=== PATIENT | female | born 1990 | race Caucasian/White ===

== ENCOUNTER 2017-03-07 18:15 | Emergency (ER) | payer OTHER ==
[~2017-03-07] VITALS: Ht 167.6 cm; Wt 68.0 kg
[2017-03-07 18:15] VITALS: BP 129/89
[2017-03-07 18:43] LABS: URINE BILIRUBIN NEGATIVE (Negative); URINE BLOOD TRACE (Negative); URINE COLOR YELLOW; URINE GLUCOSE-RANDOM* NEGATIVE (Negative); URINE KETONES TRACE (Negative); URINE NITRITE NEGATIVE (Negative); URINE PROTEIN (DIPSTICK) TRACE (Negative); URINE SPECIFIC GRAVITY >= 1.030 (1.003-1.035)
[2017-03-07] MEDS ORDERED: PENICILLIN V P500 MG PO (19:01)
== END 2017-03-07 19:39 | disposition home or self-care (01) ==
LOC: ER 18:15
PROVIDERS: Physician Assistant
DX: O26.891 Other specified pregnancy related conditions, first trimester (principal); K08.89 Other specified disorders of teeth and supporting structures; M54.5 Low back pain; Z90.49 Acquired absence of other specified parts of digestive tract; Z88.6 Allergy status to analgesic agent; Z88.5 Allergy status to narcotic agent; Z88.2 Allergy status to sulfonamides

== ENCOUNTER 2017-03-15 13:31 | Emergency (ER) | payer OTHER ==
[~2017-03-15] VITALS: Ht 167.6 cm; Wt 77.1 kg
[~2017-03-15 13:31] MED LIST: PENICILLIN V P500 MG PO
[2017-03-15] MEDS ORDERED: ASPIR 8181 MG PO (13:49)
[2017-03-15] MEDS ORDERED: IRON325 PO (13:49)
[2017-03-15 13:59] LABS: URINE BILIRUBIN NEGATIVE (Negative); URINE BLOOD TRACE (Negative); URINE COLOR YELLOW; URINE GLUCOSE-RANDOM* NEGATIVE (Negative); URINE KETONES NEGATIVE (Negative); URINE NITRITE NEGATIVE (Negative); URINE PROTEIN (DIPSTICK) TRACE (Negative); URINE SPECIFIC GRAVITY 1.025 (1.003-1.035)
[2017-03-15 14:09] LABS: ABSOLUTE NEUTROPHILS 5.9 thou/uL (1.4-8.2); BASOPHILS 0.6 % (0.0-2.0); EOSINOPHILS 0.8 % (0.0-3.0); HEMATOCRIT 37.4 % (37.0-47.0); HEMOGLOBIN 12.6 gm/dL (12.0-15.0); LYMPHOCYTES 18.4 % (24.0-44.0); MCH 27.3 pg (26.0-34.0); MCHC 33.8 g/dL (28.0-37.0); MCV 80.9 fL (80.0-100.0); MONOCYTES 9.4 % (1.0-8.0); PLATELET COUNT 267 thou/uL (150-400); POLYS 70.8 % (36.0-66.0); RBC 4.62 mil/uL (4.20-5.00); RDW 15.4 % (10.5-14.5); WBC 8.3 thou/uL (4.0-11.0)
[2017-03-15 14:13] LABS: MANUAL DIFF NO
[2017-03-15 16:44] VITALS: BP 122/65
== END 2017-03-15 16:45 | disposition home or self-care (01) ==
LOC: ER 13:31
PROVIDERS: Nurse Practitioner
DX: O98.811 Other maternal infectious and parasitic diseases complicating pregnancy, first trimester (principal); R10.2 Pelvic and perineal pain; Z3A.01 Less than 8 weeks gestation of pregnancy; Z98.890 Other specified postprocedural states; Z90.49 Acquired absence of other specified parts of digestive tract; Z88.6 Allergy status to analgesic agent; Z88.5 Allergy status to narcotic agent; Z88.2 Allergy status to sulfonamides

== ENCOUNTER 2018-01-21 16:26 | Emergency (ER) | payer OTHER ==
[~2018-01-21] VITALS: Ht 167.6 cm; Wt 68.0 kg
[~2018-01-21 16:26] MED LIST changes: +ASPIR 8181 MG PO; +IRON325 PO
[2018-01-21] MEDS ORDERED: TRAMADOL 50 MG50 MG PO (16:39)
[2018-01-21] MEDS ORDERED: AMOXICILLIN 50500 MG PO (16:39)
[2018-01-21 16:49] VITALS: BP 160/93
== END 2018-01-21 16:55 | disposition home or self-care (01) ==
LOC: ER 16:26
DX: K08.89 Other specified disorders of teeth and supporting structures (principal); Z90.49 Acquired absence of other specified parts of digestive tract; Z88.6 Allergy status to analgesic agent; Z88.5 Allergy status to narcotic agent; Z88.2 Allergy status to sulfonamides

== ENCOUNTER 2018-07-17 18:08 | Emergency (ER) | payer OTHER ==
[~2018-07-17] VITALS: Ht 165.1 cm; Wt 88.5 kg
[~2018-07-17 18:08] MED LIST changes: +AMOXICILLIN 50500 MG PO; +NAPROSYN500 MG PO; +NORFLEX100 MG PO; +TRAMADOL 50 MG50 MG PO
[2018-07-17] MEDS ORDERED: TRAMADOL 50 MG50 MG PO (20:03)
[2018-07-17] MEDS ORDERED: KEFLEX500 M1 PO (20:03)
[2018-07-17 20:31] VITALS: BP 141/82
== END 2018-07-17 20:34 | disposition home or self-care (01) ==
LOC: ER 18:08
DX: S61.210A Laceration without foreign body of right index finger without damage to nail, initial encounter (principal); Z90.49 Acquired absence of other specified parts of digestive tract; Z88.1 Allergy status to other antibiotic agents; Z88.2 Allergy status to sulfonamides; Z88.5 Allergy status to narcotic agent; W45.8XXA Other foreign body or object entering through skin, initial encounter; Y93.89 Activity, other specified; Y92.89 Other specified places as the place of occurrence of the external cause; Y99.8 Other external cause status

== ENCOUNTER 2019-02-18 11:09 | Emergency (ER) | payer OTHER ==
[~2019-02-18] VITALS: Ht 167.6 cm; Wt 86.2 kg
[~2019-02-18 11:09] MED LIST changes: +KEFLEX500 M1 PO
[2019-02-18 11:47] LABS: URINE BLOOD 3+ (Negative); URINE CLARITY CLOUDY; URINE COLOR YELLOW; URINE GLUCOSE-RANDOM* NEGATIVE (Negative); URINE KETONES NEGATIVE (Negative); URINE LEUKOCYTES-REFLEX NEGATIVE (Negative); URINE NITRITE-REFLEX NEGATIVE (Negative); URINE PROTEIN (DIPSTICK) 1+ (Negative); URINE SPECIFIC GRAVITY >= 1.030 (1.005-1.035)
[2019-02-18 11:50] LABS: ICTOTEST (BILI CONFIRMATORY) Negative (Negative); URINE BILIRUBIN NEGATIVE (Negative)
[2019-02-18 12:06] LABS: ABSOLUTE NEUTROPHILS 2.8 thou/uL (1.4-8.2); BASOPHILS 1.2 % (0.0-2.0); EOSINOPHILS 4.7 % (0.0-3.0); HEMATOCRIT 40.8 % (37.0-47.0); HEMOGLOBIN 14.1 gm/dL (12.0-15.0); LYMPHOCYTES 36.1 % (24.0-44.0); MCHC 34.5 g/dL (28.0-37.0); MCV 84.1 fL (80.0-100.0); MONOCYTES 10.6 % (1.0-8.0); PLATELET COUNT 200 thou/uL (150-400); POLYS 47.4 % (36.0-66.0); RBC 4.85 mil/uL (4.20-5.00); RDW 13.7 % (10.5-14.5); WBC 5.9 thou/uL (4.0-11.0)
[2019-02-18 12:14] LABS: CALCIUM 8.7 mg/dL (8.5-10.1); CREATININE 0.7 mg/dL (0.6-1.0); POTASSIUM 3.5 mmol/L (3.5-5.1)
[2019-02-18 12:19] LABS: CASTS None Seen /LPF (None Seen); CRYSTALS None Seen /LPF (None Seen); SQUAMOUS >10 Many /LPF (0-3); URINE RBC >20 Many /HPF (0-2)
[2019-02-18 12:20] LABS: ALBUMIN 4.2 g/dL (3.4-5.0); TOTAL BILIRUBIN 0.6 mg/dL (<0.1-1.0)
[2019-02-18 12:20] LABS: BACTERIA-REFLEX 1-9 Few /HPF (None Seen); URINE WBC-REFLEX 0-5 Rare /HPF (0-5)
[2019-02-18] MEDS ORDERED: ZANTAC 150MG T150 MG PO (13:37)
[2019-02-18] MEDS ORDERED: ONDANSETRON HCL4 M2 PO (13:37)
[2019-02-18 13:55] VITALS: BP 120/85
== END 2019-02-18 13:56 | disposition home or self-care (01) ==
LOC: ER 11:09
PROVIDERS: Nurse Practitioner Family
DX: R10.12 Left upper quadrant pain (principal); R10.13 Epigastric pain; R11.2 Nausea with vomiting, unspecified; Z88.6 Allergy status to analgesic agent; Z88.8 Allergy status to other drugs, medicaments and biological substances; Z88.2 Allergy status to sulfonamides; Z90.49 Acquired absence of other specified parts of digestive tract; Z90.89 Acquired absence of other organs